=== PATIENT | female | born 1990 | race African-American/Black ===

== ENCOUNTER 2018-06-28 00:13 | Emergency (ER) | payer OTHER ==
[~2018-06-28] VITALS: Ht 162.6 cm; Wt 90.0 kg
[2018-06-28] MEDS ORDERED: DIPH25 PO (00:34)
[2018-06-28 00:45] LABS: APPEARANCE,URINE CLOUDY (CLEAR); GLUCOSE, URINE (UA) NEGATIVE (NEGATIVE); KETONES,URINE TRACE mg/dL (NEGATIVE); LEUKOCYTE ESTERASE ,URINE MODERATE (NEGATIVE); NITRATE,URINE NEGATIVE (NEGATIVE); OCCULT BLOOD,URINE MODERATE (NEGATIVE); PH,URINE 5.5 (5.0-8.0); PROTEIN,URINE POS 1+ (NEGATIVE)
[2018-06-28 00:47] LABS: BILIRUBIN,URINE PRELIM. POSITIVE (NEGATIVE)
[2018-06-28 00:58] LABS: BACTERIA,URINE Few /HPF (None Seen); SQUAMOUS EPITHELIAL CELL,UR Many /LPF (None Seen); WBC,URINE 51-100 /HPF (0-5)
[2018-06-28 00:59] LABS: MUCUS,URINE Few LPF (None Seen)
[2018-06-28 01:32] VITALS: BP 114/75
== END 2018-06-28 01:31 | disposition home or self-care (01) ==
LOC: EMS 00:14
DX: N76.0 Acute vaginitis (principal); F12.90 Cannabis use, unspecified, uncomplicated; Z90.49 Acquired absence of other specified parts of digestive tract; Z91.010 Allergy to peanuts
CPT/HCPCS: 87086; 99284

== ENCOUNTER 2018-06-30 23:30 | Emergency (ER) | payer OTHER ==
[~2018-06-30] VITALS: Ht 165.1 cm; Wt 86.4 kg
[~2018-06-30 23:30] MED LIST: DIPH25 PO
[2018-06-30 23:34] VITALS: BP 121/66
[2018-06-30] MEDS ORDERED: ABX PO (23:47)
== END 2018-07-01 02:03 | disposition home or self-care (01) ==
LOC: EMS 23:31
DX: L73.1 Pseudofolliculitis barbae (principal); L08.9 Local infection of the skin and subcutaneous tissue, unspecified; F12.90 Cannabis use, unspecified, uncomplicated; Z90.49 Acquired absence of other specified parts of digestive tract; Z91.010 Allergy to peanuts
CPT/HCPCS: 99283

== ENCOUNTER 2018-07-03 00:06 | Emergency (ER) | payer OTHER ==
[~2018-07-03] VITALS: Ht 167.6 cm; Wt 86.0 kg
[~2018-07-03 00:06] MED LIST changes: +ABX PO
[2018-07-03] MEDS ORDERED: METR500 PO (00:48)
[2018-07-03] MEDS ORDERED: CEPH500 PO (00:48)
[2018-07-03 03:38] VITALS: BP 116/74
== END 2018-07-03 04:31 | disposition left against medical advice (07) ==
LOC: EMS 00:06
DX: M79.604 Pain in right leg (principal); F12.90 Cannabis use, unspecified, uncomplicated; Z90.49 Acquired absence of other specified parts of digestive tract; Z53.21 Procedure and treatment not carried out due to patient leaving prior to being seen by health care provider

== ENCOUNTER 2018-07-09 00:15 | Emergency (ER) | payer OTHER ==
[~2018-07-09] VITALS: Ht 162.6 cm; Wt 86.4 kg
[~2018-07-09 00:15] MED LIST changes: -ABX PO; +CEPH500 PO; -DIPH25 PO; +METR500 PO
[2018-07-09 04:09] LABS: APPEARANCE,URINE CLOUDY (CLEAR); BILIRUBIN,URINE NEGATIVE (NEGATIVE); GLUCOSE, URINE (UA) NEGATIVE (NEGATIVE); KETONES,URINE TRACE mg/dL (NEGATIVE); LEUKOCYTE ESTERASE ,URINE NEGATIVE (NEGATIVE); NITRATE,URINE NEGATIVE (NEGATIVE); OCCULT BLOOD,URINE NEGATIVE (NEGATIVE); PROTEIN,URINE TRACE (NEGATIVE)
[2018-07-09 04:15] VITALS: BP 118/69
[2018-07-09 04:34] LABS: BACTERIA,URINE None Seen /HPF (None Seen); RBC,URINE None Seen /HPF (0-2); SQUAMOUS EPITHELIAL CELL,UR Many /LPF (None Seen); WBC,URINE 0-2 /HPF (0-5)
== END 2018-07-09 04:35 | disposition home or self-care (01) ==
LOC: EMS 00:16
DX: N76.0 Acute vaginitis (principal); F12.90 Cannabis use, unspecified, uncomplicated; Z90.49 Acquired absence of other specified parts of digestive tract; Z91.010 Allergy to peanuts
CPT/HCPCS: 99283

== ENCOUNTER 2018-08-07 00:43 | Emergency (ER) | payer OTHER ==
[~2018-08-07] VITALS: Ht 167.6 cm; Wt 90.5 kg
[2018-08-07] MEDS ORDERED: [UNRECOGNIZED DRUG - REMARK] TP (00:58)
[2018-08-07 03:50] VITALS: BP 123/83
== END 2018-08-07 04:30 | disposition home or self-care (01) ==
LOC: EMS 00:44
DX: N76.0 Acute vaginitis (principal); F12.90 Cannabis use, unspecified, uncomplicated; Z90.49 Acquired absence of other specified parts of digestive tract; Z79.899 Other long term (current) drug therapy; Z91.010 Allergy to peanuts
CPT/HCPCS: 87210

== ENCOUNTER 2018-12-04 19:26 | Emergency (ER) | payer OTHER ==
[~2018-12-04] VITALS: Ht 162.6 cm; Wt 79.5 kg
[~2018-12-04 19:26] MED LIST changes: -CEPH500 PO; -METR500 PO; +[UNRECOGNIZED DRUG - REMARK] TP
[2018-12-05 00:01] VITALS: BP 118/71
== END 2018-12-05 00:29 | disposition home or self-care (01) ==
LOC: EMS 19:28
DX: L03.314 Cellulitis of groin (principal); L02.215 Cutaneous abscess of perineum; F17.200 Nicotine dependence, unspecified, uncomplicated; F12.90 Cannabis use, unspecified, uncomplicated; Z90.49 Acquired absence of other specified parts of digestive tract; Z91.010 Allergy to peanuts